=== PATIENT | male | born 1945 | race Caucasian/White ===

== ENCOUNTER 2017-03-31 10:52 | Day surgery (SDC) | payer MEDICARE ==
[2017-03-26 15:55] LABS: HEMOGLOBIN 15.4 g/dL (13.6-17.8)
--- NOTE | ~2017-03-31 | OP ---
[facility] [place] [id number] [place]. [address] NAME: ALEXANDRA MORALEZ : 45 STATUS : REG [facility] [place] PAT#: [id number] AGE: 71 ADM/REG DATE : 03/31/17 MR#: [id number] REPORT SERV DATE: 03/31/17 DICTATED BY: ASIF STEVENSON III DATE: 03/31/17 REPORT STATUS : Draft TRANSCRIBED BY: MODL DATE: 03/31/17 DATE OF PROCEDURE: 03/31/2017 PREOPERATIVE DIAGNOSIS: Enlarged prostate and urinary retention. POSTOPERATIVE DIAGNOSES: 1. Enlarged prostate with a volume of 104 mL. 2. Trabeculated bladder. PROCEDURE: Transrectal ultrasound of prostate and cystoscopy. SURGEON: Asif Stevenson M.D. ANESTHESIA: General. SPECIMENS: None. DRAINS: None. BLOOD LOSS: None. INDICATION: Mr. Moralez is a 71-year-old white male with a long history of lower urinary tract symptoms. His symptoms are now refractory to his medications. Consent is obtained for transrectal ultrasound of prostate gland, cystoscopy, and possible TURP if the gland of an appropriate size. PROCEDURE: After consent was obtained, the patient was identified, he was taken to the OR and put to sleep. He was positioned in the low lithotomy position. The transrectal ultrasound probe was then inserted. A three-dimensional volume was 104 mL. I feel as if he would benefit more from a robotic simple prostatectomy as compared to a transurethral resection of prostate gland. Cystoscopy was then performed. Images were obtained. He had trilobar obstruction of the bladder outlet. The bladder was inspected. It was moderately trabeculated. No diverticula or cellules were noted. There were no stones or tumors noted. The bladder was then drained. The scope removed. The patient awakened and taken to recovery in stable condition. PH/MODL Asif Stevenson III, M.D. / [id number] CC: [facility] [place] [address] [place]. [address] NAME: ALEXANDRA MORALEZ : 45 STATUS : REG [facility] [place] PAT#: [id number] AGE: 71 ADM/REG DATE : 03/31/17 MR#: [id number] REPORT SERV DATE: 03/31/17 DICTATED BY: ASIF STEVENSON III DATE: 03/31/17 REPORT STATUS : Draft TRANSCRIBED BY: MODL DATE: 03/31/17 Shelia Otero III, M.D.
[~2017-03-31 10:52] MED LIST: ASAB PO; C5; FISH-EPA1000 MG PO; FLOMAX4 PO; LOP25 PO; LOP50 PO; MSM500 MG OR; MULTIPLE VIT PO; NIACIN 500 PO; PRIN20 PO; SAW PALMETTO; SAW PALMETTO PO; Z300 PO; ZANTAC150 MG PO; ZESTRIL20 MG PO; ZOCOR80 MG PO; [UNRECOGNIZED DRUG - OTHER] OR; [UNRECOGNIZED DRUG - OTHER] PO; [UNRECOGNIZED DRUG - OTHER] PO; [UNRECOGNIZED DRUG - OTHER] PO
[2017-03-31 11:23] LABS: INTERNATIONAL NORMAL RATI 1.2 UNITS (-); PROTIME (NOT ORD) 15.4 SEC (12.0-14.5)
[2017-03-31 13:40] LABS: BUN (BLOOD UREA NITROGEN) 17 MG/DL (6-23); CALCIUM, SERUM 8.8 MG/DL (8.5-10.4); CHLORIDE, SERUM 108 MMOL/L (96-112); CO2 (CARBON DIOXIDE) 27 MMOL/L (24-34); CREATININE 0.88 MG/DL (0.70-1.30); GFR AFRICAN AMERICAN 100 ML/MIN (>=60); GFR NON AFRICAN AMERICAN 86 ML/MIN (>=60); GLUCOSE, SERUM 85 MG/DL (60-99); POTASSIUM, SERUM 3.9 MMOL/L (3.5-5.3); SODIUM, SERUM 141 MMOL/L (135-148)
[2017-05-19] MEDS ORDERED: DSS PO (10:08)
[2017-05-19] MEDS ORDERED: CIP5 PO (10:09)
[2017-05-19] MEDS ORDERED: PCET PO (10:09)
== END 2017-03-31 17:51 | disposition home or self-care (01) ==
LOC: SDC 10:52
PROVIDERS: Urology
PROC: BV49ZZZ Ultrasonography of Prostate and Seminal Vesicles (ICD-10-PCS; 2017-03-31)
PROC: 0TJB8ZZ Inspection of Bladder, Via Natural or Artificial Opening Endoscopic (ICD-10-PCS; principal; 2017-03-31 12:45)
DX: N40.0 Benign prostatic hyperplasia without lower urinary tract symptoms (principal); N32.89 Other specified disorders of bladder; I10 Essential (primary) hypertension; E78.00 Pure hypercholesterolemia, unspecified; I73.9 Peripheral vascular disease, unspecified; K21.9 Gastro-esophageal reflux disease without esophagitis; M10.9 Gout, unspecified; J44.9 Chronic obstructive pulmonary disease, unspecified; Z86.718 Personal history of other venous thrombosis and embolism; Z87.891 Personal history of nicotine dependence; Z86.711 Personal history of pulmonary embolism; Z79.01 Long term (current) use of anticoagulants; Z79.899 Other long term (current) drug therapy; Z79.82 Long term (current) use of aspirin
CPT/HCPCS: 76872; 80048; 85014; 85018; 85610; 93005; A9270-GY; J2405; J3010